=== PATIENT | male | born 1980 | race Caucasian/White ===

== ENCOUNTER → 2023-12-29 08:35 | Outpatient (AMB) | payer OTHER, SELFPAY ==
--- NOTE | 2023-12-29 08:42 | AM.OFFWIN_ITS ---
Intake Vital Signs 12/29/23 08:42 Height 5 ft 6 in Weight 186 lb BMI 30.0 Intake Visit Reasons: ? Poision leigha Intake Note: Patient reports he has had poison leigha x9 days, tried calamine lotion and other OTC medications to assist. Patient reports R arm swelling and poison leigha spreading. 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 Patient Tobacco Use Status: Never used Tobacco Construction Sales Manager Required: No Accompanied by: Self / Same As Patient Allergies No Known Allergies Allergy (Verified 12/29/23 08:58) Medication List - Last Reconciled 12/29/23 by Adeline Armenta, DATA SUPPORT ANALYST- celecoxib 100 mg PO BID lisinopril 10 mg PO DAILY Do you need a note to return to daycare/school/sports/work: No HPI HPI Comments History of Present Illness Details Here today w/ poison leigha started about 10 days ago used otc treatments. no longer itchy. has some blistering to right hip otherwise areas are now dry PFSH Social History Patient Tobacco Use Status: Never used Tobacco Review of Systems Const All systems reviewed & are unremarkable except as noted in HPI and below Physical Exam Vital Signs: BMI result Body Mass Index 30.0 Const Other: awake alert NAD PERRLA, EOMI Speaking in full sentences Diffuse dermatitis on ext x 4, thorax, above left eye. No signs of secondary infection Assessment & Plan Assessment & Plan (1) Poison leigha dermatitis: Code(s): L23.7 - Allergic contact dermatitis due to plants, except food Plan: use tecnu pred taper as directed advised to seek care if new lesions occur during taper avoid celebrex while on prednisone Plan . Medications: New prednisone see taper instructions 60mg x 3 days, 50 mg x 3 days, 40 mg x 3 days, 30mg x 3 days, 20mg x 3 days, 10 mg x 3days then STOP 10 mg PO DIRECTED 18 days 53 tabs 0RF Coding Level of Care Code Est Pt Level 4 (20092) Diagnoses Poison leigha dermatitis L23.7
== END ==
PROVIDERS: Visit Provider Nurse Practitioner Family
DX: L23.7 Allergic contact dermatitis due to plants, except food (principal)
CPT/HCPCS: 99214

== ENCOUNTER 2024-09-02 14:18 | Outpatient (AMB) | payer OTHER, SELFPAY ==
--- NOTE | 2024-09-02 14:31 | A.OFFPC_ITS ---
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 Intake Note: establish care Allergies oxycodone Adverse Reaction (Severe, Verified 09/02/24 14:38) Vomiting Medication List - Last Reconciled 09/02/24 by Jonh Benavides MD atorvastatin 20 mg PO DAILY celecoxib 100 mg PO BID lisinopril 10 mg PO DAILY Tobacco use date assessed: 09/02/24 Dental Screening Dental Screen Date: 09/02/24 Did you have a dental visit in the last 12 months?: Yes Did you have a dental problem in the last 6 months where you did not have access to dental care?: No Was dental information given to patient?: Patient has dentist HPI SIGNALING PROJECT ENGINEER med review HPI Details New Patient? ?? Prior PCP:? Anika Tao Last office visit/CPE:? Acute issue(s):? B/L Knee pain ?? PMHx:? HTN, HLD SurgHx:? Knee surgeries/ ACLs& MCL. [place] teeth FHx:? Mom: Pancreatic CA. Dad: HTN. SocHx:? Nonsmoker. EtOH: 2-3 dr at most 1 x a week. No drugs PFSH Medical History (Updated 09/02/24 @ 14:56 by Sigifredo East) Hypertension Surgical History (Updated 09/02/24 @ 14:34 by Argelia Gaytan CMA) History of repair of ACL Family History (Updated 09/02/24 @ 14:35 by Argelia Gaytan CMA) Mother Pancreatic cancer Father Hypertension Social History (Updated 09/02/24 @ 14:36 by Argelia Gaytan CMA) Housing: House Patient Tobacco Use Status: Never used Tobacco e-Cigarette/Vaping Use: Never Used Second Hand Smoke Exposure: No Use of substances other than those prescribed or required for medical reasons: No service: Yes Current occupational status: employed 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 1. Little interest or pleasure in doing things: not at all 2. Feeling down, depressed, or hopeless: not at all 3. Trouble falling or staying asleep, or sleeping too much: not at all 4. Feeling tired or having little energy: not at all 5. Poor appetite or overeating: not at all 6. Feeling bad about yourself - or that you are a failure or have let yourself or your family down: not at all 7. Trouble concentrating on things, such as reading the newspaper or watching television: not at all 8. Moving or speaking so slowly that other people could have noticed. Or the opposite - being so fidgety or restless that you have been moving around a lot more than usual: not at all 9. Thoughts that you would be better off or of hurting yourself in some way: not at all Total score: 0 Depression Screening Interpretation: Negative Depression Screening Done: Yes 16942 - PHQ-9 Billing: Yes Source: Developed by Drs. Adonay Locke, Kristen iSerra, Pk Fernandez and colleagues, with an educational venancio from [employer]. Thrive Questionnaire Date Thrive assessed: 09/02/24 I am a: Patient What is your living situation today?: I have a steady place to live Within the past 12 months, did the food you bought not last and you didn't have the money to get more?: Never true Within the past 12 months, did you worry whether your food would run out before you got money to buy more?: Never true Do you have trouble paying for medicines?: No Do you have trouble getting transportation to medical appointments?: No Do you have trouble paying your heating and electricity bill?: No Do you have trouble taking care of your child, family member or friend?: No Do you have trouble with day-to-day activities such as bathing, preparing meals, shopping, managing finances, etc.?: No Are you currently unemployed and looking for a job?: No Are you interested in more education?: No Please select the resources that you would like help with: None Currently or been in a relationship where the following occur: No concerns reported THRIVE Score: 0 AUDIT C Alcohol Use Questionnaire (AUDIT-C) 1. How often do you have a drink containing alcohol?: 2-4 times a month 2. How many drinks containing alcohol do you have on a typical day when you are drinking?: 1 or 2 3. How often do you have six or more drinks on one occasion?: Less than monthly Total Score: 3 KOREY-7 AMB Questionnaire KOREY-7 Date KOREY - 7 assessed: 09/02/24 Feeling nervous, anxious, or on edge: 0 = Not at all Not being able to stop or control worryin = Not at all Worrying too much about different things: 0 = Not at all Trouble relaxin = Not at all Being so restless that it is hard to sit still: 0 = Not at all Becoming easily annoyed or irritable: 0 = Not at all Feeling afraid as if something awful might happen: 0 = Not at all Total KOREY-7 score (0-4 normal; 5-9 mild; 10-14 moderate; 15-21 severe): 0 Source: Developed by Drs. Adonay Locke, Kristen Sierra, Pk Fernanedz and colleagues, with an educational venancio from [employer]. KOREY-7 Assessment Billing KOREY-7 Assessment Tool: KOREY-7 Assessment 56832 Review of Systems Const Denies chills, Denies fatigue, Denies fever(s), Denies headache(s) and Denies weakness ENT Denies dizziness and Denies headache(s) Card Denies chest pain, Denies lightheadedness, Denies dyspnea and Denies other (Palpitations) Resp Denies cough, Denies dyspnea, Denies wheezing and Denies other ( shortness of breath) Musc Denies numbness and Denies tingling Neuro Denies dizziness, Denies headache(s), Denies numbness, Denies tingling, Denies paresthesias and Denies weakness Psych Denies anxiety and Denies depression Endo Denies fatigue Aller/Immun Denies wheezing Physical exam (Primary Care) Vital Signs: Last Vital Signs Pulse 93 09/02/24 14:41 Resp 16 09/02/24 14:41 BP 138/80 09/02/24 14:41 Pulse Ox 97 09/02/24 14:41 Oxygen Delivery Method Room Air 09/02/24 14:41 BMI result Body Mass Index 30.3 Tobacco/Smoking Status: Tobacco use Status Tobacco use date assessed 09/02/24 09/02/24 14:44 Patient Tobacco Use Status Never used Tobacco 09/02/24 14:44 e-Cigarette/Vaping Use Never Used 09/02/24 14:44 PHQ-9: PHQ-9 Score PHQ-9: Total score 0 09/02/24 14:47 Depression Screening Interpretation: Negative Thrive Assessment: Date of Thrive Assessment Date Thrive assessed 09/02/24 09/02/24 14:44 Currently or been in a relationship where the following occur: No concerns reported Const General: no acute distress and well developed Nutritional Appearance: well nourished Orientation/consciousness: patient oriented x3 HENMT Head: Yes normocephalic and Yes atraumatic Eyes General: appearance normal, both eyes and all related structures Pupils: Equal, round and reactive pupils present EOM: EOMs intact bilaterally Resp Effort & Inspection: normal respiratory effort Auscultation: clear to auscultation bilaterally Cardio Rate: regular rate Rhythm: regular rhythm Heart sounds: S1 normal heart sound present, S2 normal heart sound present, no gallops, no murmurs and no rubs Neuro General: patient oriented x3 and gait normal Cranial nerves: Yes Equal, round and reactive pupils present Psych Affect: normal affect Coding Level of Care Code New Pt Level 3 (96283) Diagnoses Hypertension I10 Bilateral knee pain M25.561; M25.562 Hyperlipidemia E78.5 Laboratory exam ordered as part of routine general medical examination Z00.00 Additional Codes KOREY-7 Assessment Billing - KOREY-7 Assessment Tool: KOREY-7 Assessment 15671 ([id number]) PHQ-9 - 14112 - PHQ-9 Billing: Yes ([id number]) Assessment & Plan Assessment & Plan (1) Hypertension: Code(s): I10 - Essential (primary) hypertension Category: Medical Plan: Blood?pressure?is?controlled.??Goal?is?less?than?140/90 Continue?current?medication (2) Bilateral knee pain: Code(s): M25.561 - Pain in right knee; M25.562 - Pain in left knee Category: Medical Plan: Bilateral?knee?pain?secondary?to?degenerative?changes,?it?injuries?to?ligaments? and?surgeries. Continue?Celebrex,?ice/heat?keep?quadriceps?and?hamstrings?strong (3) Hyperlipidemia: Code(s): E78.5 - Hyperlipidemia, unspecified Category: Medical Plan: Patient?notes?that?his?prior?PCP?had?found?early?mildly?elevated?lipids?and?star avila?him?on?atorvastatin Continue?atorvastatin Check?labs (4) Laboratory exam ordered as part of routine general medical examination: Code(s): Z00.00 - Encounter for general adult medical examination without abnormal findings Category: Medical Plan: Check?labs Orders: Orders Comprehensive [place]. Panel Fast Today Z00.00 - Encounter for general adult medical examination without abnormal findings Prostate Specific Antigen Scr Today Z12.5 - Encounter for screening for malignant neoplasm of prostate Microalbumin, Random (w Creat) Today I10 - Essential (primary) hypertension Lipid Panel Today Z00.00 - Encounter for general adult medical examination without abnormal findings UA and rflx microscopic Today Z00.00 - Encounter for general adult medical examination without abnormal findings TSH reflex Free T4 Today Z00.00 - Encounter for general adult medical exami nation without abnormal findings Medications: New atorvastatin 20 mg PO DAILY 90 days 90 tabs 3RF Changed From celecoxib 100 mg PO BID To celecoxib 100 mg PO BID 90 days 180 caps 2RF From lisinopril 10 mg PO DAILY To lisinopril 10 mg PO DAILY 90 days 90 tabs 3RF
[2024-09-02 14:41] VITALS: BP 138/80; PULSE 93; RESP 16; O2SAT 97; BMI 30.3
== END 2024-09-02 14:59 | disposition home or self-care (01) ==
PROVIDERS: Visit Provider Family Medicine
DX: I10 Essential (primary) hypertension (principal); M25.561 Pain in right knee; M25.562 Pain in left knee; E78.5 Hyperlipidemia, unspecified; Z00.00 Encounter for general adult medical examination without abnormal findings

== ENCOUNTER → 2024-09-02 14:18 | Outpatient (BNVA) | payer OTHER, SELFPAY | PROVIDERS: Visit Provider Family Medicine | DX: I10 Essential (primary) hypertension (principal); M25.561 Pain in right knee; M25.562 Pain in left knee; E78.5 Hyperlipidemia, unspecified | CPT/HCPCS: 96127; 99202 ==

== ENCOUNTER 2025-07-29 15:28 | Outpatient (AMB) | payer OTHER, SELFPAY ==
--- NOTE | 2025-07-29 15:57 | A.OFFPC_ITS ---
Vital Signs 07/29/25 15:59 Height 5 ft 6 in Weight 193 lb 4 oz BMI 31.2 BP 124/66 Blood Pressure Location Rt brachial Position Sitting Respiration 16 Pulse 89 Pulse Source Pulse Oximeter Temp 98.3 F Temp Source Oral Pulse Oximetry (%) 97 Oxygen Delivery Method Room Air Intake Visit Reasons: CPE with f/u labs and health maint. 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 30 mins HPI Details 45 y/o male presents for a CPE with f.u labs and health maint. No recent labs to review. BP today 124/66. He is on lisinopril 10mg daily. HPI Comments History of Present Illness Details Documentation assistance for Jonh Benavides MD, was provided by Sigifredo East,? Diabetes Clinical Manager on 07/29/2025 at 4:20 PM EST. I, Dr. Benavides, have read, observed, and verified documentation. ?? 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 1. Little interest or pleasure in doing things: not at all 2. Feeling down, depressed, or hopeless: not at all 3. Trouble falling or staying asleep, or sleeping too much: not at all 4. Feeling tired or having little energy: not at all 5. Poor appetite or overeating: not at all 6. Feeling bad about yourself - or that you are a failure or have let yourself or your family down: not at all 7. Trouble concentrating on things, such as reading the newspaper or watching television: not at all 8. Moving or speaking so slowly that other people could have noticed. Or the opposite - being so fidgety or restless that you have been moving around a lot more than usual: not at all 9. Thoughts that you would be better off or of hurting yourself in some way: not at all Total score: 0 Depression Screening Interpretation: Negative Depression Screening Done: Yes 70717 - PHQ-9 Billing: Yes Source: Developed by Drs. Adonay Locke, Kristen Sierra, Pk Fernandez and colleagues, with an educational venancio from [employer]. Thrive Questionnaire Date Thrive assessed: 07/29/25 I am a: Patient What is your living situation today?: I have a steady place to live Within the past 12 months, did the food you bought not last and you didn't have the money to get more?: Never true Within the past 12 months, did you worry whether your food would run out before you got money to buy more?: Never true Do you have trouble paying for medicines?: No Do you have trouble getting transportation to medical appointments?: No Do you have trouble paying your heating and electricity bill?: No Do you have trouble taking care of your child, family member or friend?: No Do you have trouble with day-to-day activities such as bathing, preparing meals, shopping, managing finances, etc.?: No Are you currently unemployed and looking for a job?: No Are you interested in more education?: No Please select the resources that you would like help with: None Currently or been in a relationship where the following occur: No concerns reported THRIVE Score: 0 AUDIT C Alcohol Use Questionnaire (AUDIT-C) 1. How often do you have a drink containing alcohol?: 2-4 times a month 2. How many drinks containing alcohol do you have on a typical day when you are drinking?: 3 or 4 3. How often do you have six or more drinks on one occasion?: Less than monthly Total Score: 4 KOREY-7 AMB Questionnaire KOREY-7 Date KOREY - 7 assessed: 07/29/25 Feeling nervous, anxious, or on edge: 0 = Not at all Not being able to stop or control worryin = Not at all Worrying too much about different things: 0 = Not at all Trouble relaxin = Not at all Being so restless that it is hard to sit still: 0 = Not at all Becoming easily annoyed or irritable: 0 = Not at all Feeling afraid as if something awful might happen: 0 = Not at all Total KOREY-7 score (0-4 normal; 5-9 mild; 10-14 moderate; 15-21 severe): 0 Source: Developed by Drs. Adonay Locke, Kristen Sierra, Pk Fernandez and colleagues, with an educational venancio from [employer]. KOREY-7 Assessment Billing KOREY-7 Assessment Tool: KOREY-7 Assessment 61571 Review of Systems Const Denies chills, Denies fatigue, Denies fever(s), Denies headache(s) and Denies weakness Eyes Denies change in vision ENT Denies dizziness, Denies headache(s), Denies hearing loss, Denies nasal congestion, Denies sinus pain, Denies sinus pressure and Denies sore throat Card Denies chest pain, Denies lightheadedness, Denies dyspnea and Denies other (palpitations) Resp Denies cough, Denies dyspnea and Denies wheezing GI Denies abdominal pain, Denies melena, Denies hematochezia, Denies change in bowel habits, Denies dyspepsia and Denies nausea Denies hematuria and Denies dysuria Musc Denies abnormal gait, Denies myalgias, Denies arthralgias, Denies numbness and Denies tingling Skin/Breast Denies rash, Denies unusual bruising and Denies wounds Neuro Denies abnormal gait, Denies dizziness, Denies headache(s), Denies memory loss, Denies numbness, Denies Sensory deficit (Neuro), Denies tingling and Denies weakness Psych Denies anxiety, Denies depression and Denies memory loss Endo Denies cold intolerance, Denies fatigue, Denies heat intolerance, Denies polydipsia and Denies polyuria Jean-Paul/Lymph Denies easy bleeding and Denies easy bruising Aller/Immun Denies wheezing Physical exam (Primary Care) Vital Signs: Last Vital Signs Temp 98.3 F 07/29/25 15:59 Pulse 89 07/29/25 15:59 Resp 16 07/29/25 15:59 BP 124/66 07/29/25 15:59 Pulse Ox 97 07/29/25 15:59 Oxygen Delivery Method Room Air 07/29/25 15:59 BMI result Body Mass Index 31.2 Tobacco/Smoking Status: Tobacco use Status Tobacco use date assessed 07/29/25 07/29/25 16:03 Patient Tobacco Use Status Never used Tobacco 07/29/25 16:03 e-Cigarette/Vaping Use Never Used 07/29/25 16:03 PHQ-9: PHQ-9 Score PHQ-9: Total score 0 07/29/25 16:03 Depression Screening Interpretation: Negative Thrive Assessment: Date of Thrive Assessment Date Thrive assessed 07/29/25 07/29/25 16:03 Currently or been in a relationship where the following occur: No concerns reported Const General: no acute distress, well developed, alert and awake Nutritional Appearance: well nourished Orientation/consciousness: patient oriented x3 HENMT Head: Yes normocephalic and Yes atraumatic Ears: hearing grossly normal bilaterally and TM's normal bilaterally General nose exam: Normal external nose present and Normal nares present Mouth: Normal oral and palatal mucosa present and moist mucous membranes Teeth and gingiva: dentition normal Throat: Yes posterior oropharynx normal Eyes General: appearance normal, both eyes and all related structures Pupils: Equal, round and reactive pupils present and Pupil accommodation reflex normal EOM: EOMs intact bilaterally Neck Neck: Yes normal visual inspection, Yes no lymphadenopathy and Yes trachea midline Thyroid: Thyroid normal Carotids: no bruits Lymphatic: no lymphadenopathy noted Chest Chest palpation & inspection: normal inspection of the chest Resp Effort & Inspection: normal respiratory effort Auscultation: clear to auscultation bilaterally Cardio Rate: regular rate Rhythm: regular rhythm Heart sounds: S1 normal heart sound present, S2 normal heart sound present, no gallops, no murmurs and no rubs Bruits: no abdominal aortic bruits and no carotid bruits GI Palpation (GI): No Abdominal aortic bruit present, Soft to palpation, nontender, No hepatosplenomegaly present and No Rebound tenderness present Auscultation: normal bowel sounds General: Yes no CVA tenderness Back/Spine/Pelvis Back: no CVA tenderness Cervical Spine: cervical ROM normal and No Cervical spine tenderness Thoracic/Lumbar Spine: thoraco-lumbar ROM normal, No pain with thoraco-lumbar ROM, No thoracic spinal tenderness and No lumbar spinal tenderness Skin Lesions: no lesions Rashes: no rashes Trauma: no lacerations or abrasions Wounds: no wounds Nails: normal Neuro General: patient oriented x3 Cranial nerves: Yes Equal, round and reactive pupils present Cognition (Neuro): normal cognition Gait exam (Neuro): Normal gait present Motor exam (neuro): 5/5 motor strength present throughout Sensory Exam: No Sensory deficit (Neuro) Deep tendon reflexes (DTR's): Right patellar reflex intensity grade: 2+ and Left patellar reflex intensity grade: 2+ Extrem General: Yes normal to inspection and No edema Psych Appearance: grossly normal Affect: normal affect Attitude: cooperative Thought process: Normal thought process present Coding Level of Care Code Est Pt Level 3 (38556) Est Pt Prev Care 40-64y(64104) Diagnoses Adult general medical exam Z00.00 Screening for prostate cancer Z12.5 Hypertension I10 GERD (gastroesophageal reflux disease) K21.9 Additional Codes KOREY-7 Assessment Billing - KOREY-7 Assessment Tool: KOREY-7 Assessment 59248 ([id number]) PHQ-9 - 87590 - PHQ-9 Billing: Yes ([id number]) Assessment & Plan Assessment & Plan (1) Adult general medical exam: Code(s): Z00.00 - Encounter for general adult medical examination without abnormal findings Category: Medical Plan: 45-year-old male presents for complete physical exam Encouraged healthy diet with active lifestyle and plenty of exercise (2) Screening for prostate cancer: Code(s): Z12.5 - Encounter for screening for malignant neoplasm of prostate Category: Medical Plan: Due for PSA-ordered Will review at upcoming telemedicine appointment (3) Hypertension: Code(s): I10 - Essential (primary) hypertension Category: Medical Plan: Blood pressure is controlled. Goal is less than 140/90 Continue current medication (4) GERD (gastroesophageal reflux disease): Code(s): K21.9 - Gastro-esophageal reflux disease without esophagitis Category: Medical Plan: Mild, infrequent symptoms Discussed triggers and conservative management He will let know if this changes
[2025-07-29 15:59] VITALS: BP 124/66; PULSE 89; RESP 16; TEMP 36.8; O2SAT 97; BMI 31.2
== END 2025-07-29 16:26 | disposition home or self-care (01) ==
LOC: HO.HMCFM 15:29
PROVIDERS: PCP Family Medicine; Visit Provider Family Medicine
DX: Z00.00 Encounter for general adult medical examination without abnormal findings (principal); I10 Essential (primary) hypertension; K21.9 Gastro-esophageal reflux disease without esophagitis; Z12.5 Encounter for screening for malignant neoplasm of prostate

== ENCOUNTER → 2025-07-29 15:28 | Outpatient (BNVA) | payer OTHER, SELFPAY | PROVIDERS: Visit Provider Family Medicine | DX: Z13.31 Encounter for screening for depression (principal); Z13.39 Encounter for screening examination for other mental health and behavioral disorders | CPT/HCPCS: 96127 ==